=== PATIENT | female | born 1995 | race Caucasian/White ===

== ENCOUNTER 2017-06-14 16:57 | Inpatient (IN) | payer OTHER ==
[~2017-06-14] VITALS: Ht 167.6 cm; Wt 101.8 kg
[2017-06-14] VITALS (17 sets, daily range): BP systolic 99–138; BP diastolic 58–81; PULSE 65–106; TEMP 98–98.3
[2017-06-14] MEDS ORDERED: TYLENOL 325MG325 MG PO (17:08)
[2017-06-14] MEDS ORDERED: ZANTAC 150MG T150 MG PO (17:08)
[2017-06-14] MEDS ORDERED: PRENATAL1 TA7 PO (17:09)
[2017-06-14 17:27] LABS: BASO % 0.3 % (0.0-2.0); EOS # 0.2 (0.0-0.7); EOS % 1.5 % (0-4.0); GRAN # 7.6 (1.4-6.5); GRAN % 67.1 % (42.2-75.2); HEMOGLOBIN 11.1 g/dl (12.5-16.0); LYMPH # 2.4 (1.2-3.4); LYMPH % 21.2 % (20.0-51.0); MEAN CELL VOLUME 88 fl (80.0-100.0); MEAN CORPUSCULAR HEMOGLOBIN 30 pg (27.0-31.0); MEAN CORPUSCULAR HGB CONC 35 g/dl (33.0-37.0); MEAN PLATELET VOLUME 10.3 fl (7.4-10.4); MONO # 0.9 (0.1-0.6); PLATELET COUNT 346 K/mm3 (130-400); RED BLOOD COUNT 3.65 M/mm3 (4.10-5.30); REDCELL DISTRIBUTION WIDTH-CV 12.9 % (11.5-14.5); WHITE BLOOD COUNT 11.3 K/mm3 (4.8-10.8)
[2017-06-15 04:08] VITALS: BP 127/81; PULSE 97; TEMP 97.7
[2017-06-15 07:15] VITALS: BP 121/79; PULSE 91; TEMP 97.7
[2017-06-15 09:02] LABS: HEMATOCRIT 29.9 % (37.0-47.0)
[2017-06-15 11:15] VITALS: BP 118/78; PULSE 88; TEMP 98.1
[2017-06-15 16:10] VITALS: BP 126/76; PULSE 99; TEMP 97.6
[2017-06-15 20:30] VITALS: BP 124/59; PULSE 92
[2017-06-16 08:15] VITALS: BP 124/71; PULSE 81; TEMP 98.5
[2017-06-16 17:00] VITALS: BP 127/71; PULSE 82; TEMP 98.2
[2017-06-16 20:30] VITALS: BP 139/78; PULSE 92; TEMP 99
[2017-06-17 07:38] VITALS: BP 121/75; PULSE 86; TEMP 98
[2017-06-17] MEDS ORDERED: MOTRIN 800800 MG/TAB PO (10:11)
[2017-06-17] MEDS ORDERED: PERCOCET 325 MG1 TA2 PO (10:11)
[2017-06-17] MEDS ORDERED: NORCO 325 MG-51 TAB PO (13:10)
== END 2017-06-17 14:30 | disposition home or self-care (01) | DRG 766 ==
LOC: OB 16:57 → LDR 16:57 → OB 19:40 → LDRO 06-24 06:51 → EDSTATUS 06-24 16:56
PROVIDERS: Obstetrics & Gynecology
PROC: 10D00Z1 Extraction of Products of Conception, Low, Open Approach (ICD-10-PCS; principal; 2017-06-14)
PROC: 10D00Z1 Extraction of Products of Conception, Low, Open Approach (ICD-10-PCS; 2017-06-14)
DX: O42.013 Preterm premature rupture of membranes, onset of labor within 24 hours of rupture, third trimester (principal); O32.1XX0 Maternal care for breech presentation, not applicable or unspecified; O99.02 Anemia complicating childbirth; D64.9 Anemia, unspecified; Z3A.36 36 weeks gestation of pregnancy; Z37.0 Single live birth
CPT/HCPCS: J0690; J1885; J2270; J2370; J2405; J2540; J2590; J7120

== ENCOUNTER → 2017-06-28 | Outpatient (CLI) | payer OTHER ==
[~2017-06-28] MED LIST: MOTRIN 800800 MG/TAB PO; NORCO 325 MG-51 TAB PO; PERCOCET 325 MG1 TA2 PO; PRENATAL1 TA7 PO; TYLENOL 325MG325 MG PO; ZANTAC 150MG T150 MG PO
== END ==
LOC: LAC 13:09
DX: Z39.1 Encounter for care and examination of lactating mother (principal); Z71.89 Other specified counseling

== ENCOUNTER 2022-07-31 09:18 | Emergency (ER) | payer OTHER, MEDICAID ==
[~2022-07-31] VITALS: Ht 170.2 cm; Wt 86.4 kg
[2022-07-31 09:34] VITALS: BP 121/65; TEMP 97.3
[2022-07-31 10:13] LABS: COLLECTION METHOD CLEAN CATCH
[2022-07-31 10:22] LABS: MUCOUS Present (NOT PRESENT); URINE BACTERIA Occasional /hpf (NONE SEEN); URINE RBC 0-2 /hpf (0-2)
[2022-07-31 10:23] LABS: URINE APPEARANCE Hazy (CLEAR/HAZY); URINE COLOR OTHER (YELLOW); URINE GLUCOSE TRACE (NEGATIVE); URINE PROTEIN(semi-quant) 1+ (NEGATIVE)
[2022-07-31 10:24] LABS: URINE BLOOD Negative (NEGATIVE); URINE KETONE Negative (NEGATIVE); URINE NITRATE Positive (NEGATIVE)
[2022-07-31] MEDS ORDERED: CEPHALEXIN500 M1 PO (11:18)
[2022-07-31 11:26] VITALS: PULSE 88
== END 2022-07-31 11:30 | disposition home or self-care (01) ==
LOC: COL.ER 09:18
PROVIDERS: Emergency Medicine
DX: O23.42 Unspecified infection of urinary tract in pregnancy, second trimester (principal); N39.0 Urinary tract infection, site not specified; Z28.310 Unvaccinated for COVID-19; Z3A.14 14 weeks gestation of pregnancy

== ENCOUNTER 2023-01-09 08:17 | Outpatient (CLI) | payer MEDICAID ==
[~2023-01-09] VITALS: Ht 170.2 cm; Wt 101.4 kg
[~2023-01-09 08:17] MED LIST changes: +CEPHALEXIN500 M1 PO
--- NOTE | 2023-01-09 08:25 | NUR ---
Pt arrived on unit ambulatory and with concerns for possible ROM. Pt reports feeling a "small gush" of fluid this morning with occasional contractions but denies any vaginal bleeding and reports normal movement. Pt also reports sexual intercourse last night. EFM and toco monitors started. Vital signs WNL. SVE by this RN FT/50/-2 with negative amniotrace and no fluid noted on exam. Dr. Sheridan notified. See physician notification for details.
[2023-01-09 09:00] VITALS: BP 126/81; PULSE 96; TEMP 98
--- NOTE | 2023-01-09 09:10 | NUR ---
FHR tracing with decel noted close to maternal HR as coorelates with SPO2 monitor. RN at the bedside to assist with reposition of pt and EFM adjustment. Dr. Sheridan on the unit. FHR tracing reviewed. Extended labor check to monitor FHR tracing. Plan of care reviewed with pt.
== END 2023-01-09 10:20 | disposition home or self-care (01) ==
LOC: LDRO 08:17
DX: O42.92 Full-term premature rupture of membranes, unspecified as to length of time between rupture and onset of labor (principal); Z3A.37 37 weeks gestation of pregnancy

== ENCOUNTER 2023-01-20 09:55 | Inpatient (IN) | payer MEDICAID ==
[~2023-01-20] VITALS: Ht 170.2 cm; Wt 105.5 kg
[2023-01-20] VITALS (26 sets, daily range): BP systolic 83–147; BP diastolic 56–92; PULSE 62–120; TEMP 97.8–97.9
--- NOTE | 2023-01-20 10:05 | NUR ---
Pt arrived on unit ambulatory escorted by and with concerns for contractions. Pt report contractions starting last night but worsening and more frequent this morning. Pt denies any leaking of fluid or vaginal bleeding and reports normal movement. EFM and toco monitors started. Vital signs WNL. SVE by this RN 1-/-2. Dr. Diallo on unit. See physician notification for details.
--- NOTE | 2023-01-20 11:17 | NUR ---
This nurse received report from Ami Saenz RN. Pt is attempting a TOLAC, has a history of a section, G2 L1, and currently on a birthing ball. ALEXIAE recheck at 1215. This nurse assumes care from Ami Saenz RN.
--- NOTE | 2023-01-20 11:30 | NUR ---
FHR tracing intermittently on the monitor due to movement and pt position from utilizing birthing ball. This nurse at pt bedside palpating pt abd, with pt consent and explanation, attempting to readjust FHR monitor.
--- NOTE | 2023-01-20 12:00 | NUR ---
FHR and ctx monitors tracing intermittently due to movement and pt position utiliziing birthing ball. FHR and FM audible throughout room. This nurse at pt bedside, attempting to readjust external monitors x2.
--- NOTE | 2023-01-20 13:00 | NUR ---
FHR and ctx tracing intermittently due to pt ambulating room and unit floor. This nurse at pt bedside palpating pt abd, with pt consent and explanation, attempting to readjust external monitors x2. 1257: Pt on mobile wireless monitor. Pt ambulating unit floor. FHR tracing intermittently due to pt ambulating. This nurse intermittently palpating pt abd, attempting to readjust external monitors x2 for baseline reading.
--- NOTE | 2023-01-20 13:30 | NUR ---
Pt on mobile wireless monitor and ambulating unit floor. FHR tracing intermittently due to pt ambulating with wireless monitor. This nurse intermittently palpating pt abd attempting to readjust external monitors x2.
--- NOTE | 2023-01-20 13:38 | NUR ---
FHR and ctx tracing intermittently due to movement and pt position utilizing the ball and ambulating as needed. FHR and FM audible throughout room. This nurse at pt bedside palpating pt abd, with pt consent and explanation, attempting to readjust external monitors x2. 1215: SVE, with pt consent and explanation, unchanged.
--- NOTE | 2023-01-20 14:30 | NUR ---
1406: This nurse educated pt and pt significant other on use of sheet for abdominal lift and tucks with each ctx to help with labor as well as make space for baby to take the path of least resistance. 1420: Pt on hands and knees in fire hydrant position with peanut ball. Pt and pt significant other educated on both left and right side switch/positioning with each ctx.
--- NOTE | 2023-01-20 15:00 | NUR ---
[id number]: Pt off external monitors x2, ambulating to utilize bathroom. 1444: Pt back on external monitors x2.
--- NOTE | 2023-01-20 15:30 | NUR ---
Pt performing abdominal tuck and lift with pt significant other before transitioning onto RABTing ball. FHR and ctx tracing intermittently due to pt ambulating and utilizing birthing ball. This nurse at pt bedside palpating pt abd, with pt consent and explanation, attempting toreadjust external monitors x2.
--- NOTE | 2023-01-20 16:09 | NUR ---
[id number]: Pt off external monitors x2, ambulating to utilize bathroom. [id number]: Pt back on external monitors x2. Late deceleration noted, lowest point in the 60s. This nurse and charge nurse Ami Saenz RN applied interventions in positional changes. Dr. Diallo at bedside at 1556. Late deceleration resolved at 1558. Dr. Imani OMORE, 2-3/-3. Dr. Diallo discusses with pt section POC. Risks and benefits discussed. Questions, conerns, and needs encouraged. Pt verbalized understanding and agreement of POC with "no" questions, concerns, or needs. Pt prepped for section. 18G IV to left AC and LR bag 1 obtained and administered at 1553. Pt abd prepped with soap and washcloth. Pt mons pubis area clipped. Pt PPE given and donned. Pt significant other PPE given and donned. Pt off external monitors x2 at 1609 and ambulating to OR, accompanied by this nurse and pt siginificant other.
[2023-01-20 16:18] LABS: HEMOGLOBIN 11.7 g/dl (12.5-16.0); MEAN CELL VOLUME 89 fl (80.0-100.0); MEAN CORPUSCULAR HEMOGLOBIN 29 pg (27-31); MEAN CORPUSCULAR HGB CONC 33 g/dl (33.0-37.0); MEAN PLATELET VOLUME 10.3 fl (7.4-10.4); PLATELET COUNT 383 K/mm3 (130-400); REDCELL DISTRIBUTION WIDTH-CV 13.5 % (11.5-14.5)
[2023-01-20 16:19] LABS: HEMATOCRIT 35.4 % (37.0-47.0)
[2023-01-20 17:12] LABS: LYMPHOCYTE 18 % (20.0-51.0); NEUTROPHILS 79 % (42.0-75.2); PLATELET ESTIMATE NORMAL (NORMAL)
--- NOTE | 2023-01-20 18:15 | NUR ---
1749: Pt DC from PACU. Pt transported to Pospartum Room 213, via bed, accompanied by this nurse and pt significant other. 1810: Pt oriented to Room 213. Pt educated to whiteboard, education packet, abnormal bleeding, and interventions. POC discussed. Questions, cocnerns, and needs encouraged. Hep B vaccine and consent for circumcision discussed and obtained. Pt verbalized understanding of POC with "no" questions, concerns, or needs. 1815: recovery started.
--- NOTE | 2023-01-20 19:45 | NUR ---
Shadowing of red drainage noted on abd bandage. This nurse outlined the current drainage for baseline and further monitoring. Pt denied pain, visual disturbances, SOA, and pain in legs. Tobar catheter UOP yellow, clear and 300mL noted. Charge nurse Zuleyka Hall RN notified of this nurse finding of pt abd dressing.
--- NOTE | 2023-01-20 21:15 | NUR ---
Pt abd dressing marked for shadowing outside of earlier border outline marking. This nurse and charge nurse Zuleyka Hall RN visualized and marked new outline of bleeding.
[2023-01-21 01:25] VITALS: BP 130/72; PULSE 103; TEMP 98
[2023-01-21 05:00] VITALS: BP 120/58; PULSE 92; TEMP 98.1
[2023-01-21 09:00] VITALS: BP 107/65; PULSE 94
--- NOTE | 2023-01-21 14:44 | NUR ---
This nurse received report from Ami Saenz RN. Pt has one void left and may DC INT as well as shower, VS at 1600, medication administered, and has been fine. This nurse assumes care.
[2023-01-21 16:00] VITALS: BP 121/74; PULSE 98; TEMP 97.9
[2023-01-21 20:00] VITALS: BP 116/65; PULSE 93; TEMP 97.9
[2023-01-22 07:00] VITALS: BP 115/60; PULSE 95; TEMP 97.7
[2023-01-22] MEDS ORDERED: IBU600 MG PO (08:45)
[2023-01-22] MEDS ORDERED: NORCO 325 MG-51 TAB PO (08:46)
--- NOTE | 2023-01-22 09:06 | NUR ---
Initial visit; Parents resting, Mom thanked for looking in on her family and offering congratulations for the of her son. thanked mom for choosing our hospital.
== END 2023-01-22 12:25 | disposition home or self-care (01) | DRG 786 ==
LOC: LDRO 09:55 → LDR 15:58 → OB 18:10
PROVIDERS: Obstetrics & Gynecology; ADMIT Obstetrics & Gynecology
PROC: 10D00Z1 Extraction of Products of Conception, Low, Open Approach (ICD-10-PCS; principal; 2023-01-20)
DX: O34.211 Maternal care for low transverse scar from previous cesarean delivery (principal); O75.3 Other infection during labor; Z3A.39 39 weeks gestation of pregnancy; Z37.0 Single live birth; O32.1XX0 Maternal care for breech presentation, not applicable or unspecified; O36.8330 Maternal care for abnormalities of the fetal heart rate or rhythm, third trimester, not applicable or unspecified; O99.344 Other mental disorders complicating childbirth; F41.9 Anxiety disorder, unspecified; F31.9 Bipolar disorder, unspecified; J45.909 Unspecified asthma, uncomplicated; O99.52 Diseases of the respiratory system complicating childbirth; N30.10 Interstitial cystitis (chronic) without hematuria; O69.0XX0 Labor and delivery complicated by prolapse of cord, not applicable or unspecified
CPT/HCPCS: J0690; J1100; J1885; J2405; J2590